=== PATIENT | male | born 1970 | race African-American/Black ===

== ENCOUNTER 2020-07-09 11:19 | Emergency (ER) | payer MEDICARE ==
[2020-07-09] MEDS ORDERED: SODIUM CHLORIDE 0.9% 1000 ML 1,000 ML IV ONE (11:41)
[2020-07-09] MEDS ORDERED: MORPHINE 4 MG/1 ML INJ IV ONE (11:41)
[2020-07-09] MEDS ORDERED: ONDANSETRON 4 MG/2 ML INJ IV ONE (11:41)
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
[2020-07-09 11:44] VITALS: BP 136/80
[2020-07-09] MEDS ORDERED: IBUPROFEN 800 MG TAB PO ONE (11:56)
[2020-07-09] MEDS ORDERED: HYDROmorphone 2 MG/1 ML INJ IV ONE (14:47)
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
== END 2020-07-09 14:35 | disposition home or self-care (01) ==
LOC: ED 11:19
DX: T24.201A Burn of second degree of unspecified site of right lower limb, except ankle and foot, initial encounter (principal); T23.102A Burn of first degree of left hand, unspecified site, initial encounter; T23.101A Burn of first degree of right hand, unspecified site, initial encounter; Z98.890 Other specified postprocedural states; Z79.899 Other long term (current) drug therapy; Z88.8 Allergy status to other drugs, medicaments and biological substances; X11.8XXA Contact with other hot tap-water, initial encounter; Y93.89 Activity, other specified; Y92.89 Other specified places as the place of occurrence of the external cause; Y99.8 Other external cause status
CPT/HCPCS: 16020; 96374; 96375; 99283; J2270; J2405; J7030